=== PATIENT | female | born 1970 | race African-American/Black ===

== ENCOUNTER 2017-09-02 15:07 | Observation (INO) | payer BC ==
--- NOTE | 2017-09-02 15:41 | ER Document Report ---
ED Medical Screen (RME) - General Chief Complaint: Numbness of Face Stated Complaint: NUMBNESS, LEFT ARM PAIN Time Seen by Provider: 09/02/17 15:39 Mode of Arrival: Ambulatory Information source: Patient Notes: 47-year-old female with hypertension, prediabetes presents with complaint of left-sided facial numbness that started 1 hour prior to arrival. Patient denies any associated slurred speech, headache, unilateral weakness. She does state that yesterday she experienced some left elbow pain but no weakness. NIH performed and 1 for some minor facial asymmetry. I have greeted and performed a rapid initial assessment of this patient. A comprehensive ED assessment and evaluation of the patient including analysis of labs and imaging ( if obtained) and completion of medical decision making will be conducted by an additional ED provider. PHYSICAL EXAMINATION: GENERAL: Well-appearing, well-nourished and in no acute distress. HEAD: Atraumatic, normocephalic. EYES: Pupils equal round extraocular movements intact, conjunctiva are normal. ENT: Nares patent NECK: Normal range of motion LUNGS: No respiratory distress Musculoskeletal: Normal range of motion NEUROLOGICAL: Normal speech, normal gait. Minor facial asymmetry. NIH 1 PSYCH: Normal mood, normal affect. SKIN: Warm, Dry, normal turgor, no rashes or lesions noted. TRAVEL OUTSIDE OF THE [place] IN LAST 30 DAYS: No - Related Data Allergies/Adverse Reactions: erythromycin base Allergy (Verified 09/02/17 15:15) ibuprofen Allergy (Verified 09/02/17 15:15) Penicillins Allergy (Verified 09/02/17 15:15) Sulfa (Sulfonamide Antibiotics) Allergy (Verified 09/02/17 15:15) Past Medical History - Past Medical History Cardiac Medical History: Reports: Hx Hypertension Pulmonary Medical History: Reports: Hx Asthma Physical Exam - Vital signs Vitals: Temp Pulse Resp BP Pulse Ox 98.7 F 84 18 149/84 H 97 09/02/17 15:25 09/02/17 15:25 09/02/17 15:25 09/02/17 15:25 09/02/17 15:25 Course - Vital Signs Vital signs: Temp Pulse Resp BP Pulse Ox 98.7 F 84 18 149/84 H 97 09/02/17 15:25 09/02/17 15:25 09/02/17 15:25 09/02/17 15:25 09/02/17 15:25
--- NOTE | 2017-09-02 16:27 | RADIOLOGY REPORT (SQ) ---
EXAM DESCRIPTION: CT HEAD WITHOUT COMPLETED DATE/TIME: 09/02/2017 4:04 pm REASON FOR STUDY: Facial numbness COMPARISON: None. TECHNIQUE: Axial images acquired through the brain without intravenous contrast. Images reviewed wi th bone, brain and subdural windows. Additional sagittal and coronal reconstructions were generated. Images stored on PACS. All CT scanners at this facility use dose modulation, iterative reconstruction, and/or weight based d osing when appropriate to reduce radiation dose to as low as reasonably achievable (ALARA). [facility]: Dose Right [facility]: CareDose [facility]: Dose Right [facility]: Teradose 4D [facility]: Smart ClearSaleing RADIATION DOSE: CT Rad equipment meets quality standard of care and radiation dose reduction techniq ues were employed. CTDIvol: 53.2 mGy. DLP: 1044 mGy-cm. mGy. LIMITATIONS: None. FINDINGS: VENTRICLES: Normal size and contour. CEREBRUM: No masses. No hemorrhage. No midline shift. No evidence for acute infarction. Normal gra y/white matter differentiation. No areas of low density in the white matter. CEREBELLUM: No masses. No hemorrhage. No alteration of density. No evidence for acute infarction. EXTRAAXIAL SPACES: No fluid collections. No masses. ORBITS AND GLOBE: No intra- or extraconal masses. Normal contour of globe without masses. CALVARIUM: No fracture. PARANASAL SINUSES: No fluid or mucosal thickening. SOFT TISSUES: No mass or hematoma. OTHER: No other significant finding. IMPRESSION: NORMAL BRAIN CT WITHOUT CONTRAST. EVIDENCE OF ACUTE STROKE: NO. COMMENT: Quality ID # [id number]: Final reports with documentation of one or more dose reduction techniques (e.g., Automated exposure control, adjustment of the mA and/or kV according to patient size, use of iterative reconstruction technique) TECHNICAL DOCUMENTATION: JOB ID: [id number] [employer]- All Rights Reserved Reading location - IP/workstation name: [email or web address]
--- NOTE | 2017-09-02 16:28 | RADIOLOGY REPORT (SQ) ---
EXAM DESCRIPTION: CHEST 2 VIEWS COMPLETED DATE/TIME: 09/02/2017 4:09 pm REASON FOR STUDY: Facial numbness COMPARISON: 07/13/2014 EXAM PARAMETERS: NUMBER OF VIEWS: two views TECHNIQUE: Digital Frontal and Lateral radiographic views of the chest acquired. RADIATION DOSE: NA LIMITATIONS: none FINDINGS: LUNGS AND PLEURA: No opacities, masses or pneumothorax. No pleural effusion. MEDIASTINUM AND HILAR STRUCTURES: No masses or contour abnormalities. HEART AND VASCULAR STRUCTURES: Heart normal size. No evidence for failure. BONES: No acute findings. HARDWARE: None in the chest. OTHER: No other significant finding. IMPRESSION: NO ACUTE RADIOGRAPHIC FINDING IN THE CHEST. TECHNICAL DOCUMENTATION: JOB ID: [id number] [employer]- All Rights Reserved Reading location - IP/workstation name: [email or web address]
--- NOTE | 2017-09-02 16:33 | ER Document Report ---
ED General - General Mode of Arrival: Ambulatory Information source: Patient TRAVEL OUTSIDE OF THE [place]. IN LAST 30 DAYS: No <JOELLEN CUMMINGS - Last Filed: 09/02/17 17:33> <LINDA PARISH - Last Filed: 09/02/17 18:58> - General Chief Complaint: Numbness of Face Stated Complaint: NUMBNESS, LEFT ARM PAIN Time Seen by Provider: 09/02/17 15:39 Notes: Patient is a 47 year old female with HTN and pre-diabetes presents to the emergency department complaining of left sided facial numbness onset today. Around 1400, the patient was brushing her teeth and noticed the left side of her mouth was numb, further stating she began to drool out of the left side of her mouth and could not puff up her cheeks. Patient states she had a similar episode a few years ago where she had right sided weakness. She states the MRI and CT scan performed then did not provide etiology for her weakness. Patient states she has family in [place] and is visiting from [place]. (JOELLEN CUMMINGS) - Related Data Allergies/Adverse Reactions: erythromycin base Allergy (Verified 09/02/17 15:41) ibuprofen Allergy (Verified 09/02/17 15:41) NSAIDS (Non-Steroidal Anti-Inflamma Allergy (Verified 09/02/17 15:41) Penicillins Allergy (Verified 09/02/17 15:41) Sulfa (Sulfonamide Antibiotics) Allergy (Verified 09/02/17 15:41) Past Medical History - General Information source: Patient - Social History Smoking Status: Never Smoker Chew tobacco use (# tins/day): No Frequency of alcohol use: None Drug Abuse: None Family History: Reviewed & Not Pertinent Patient has suicidal ideation: No Patient has homicidal ideation: No - Past Medical History Cardiac Medical History: Reports: Hx Hypertension Pulmonary Medical History: Reports: Hx Asthma <JOELLEN CUMMINGS - Last Filed: 09/02/17 17:33> Review of Systems - Review of Systems Constitutional: No symptoms reported EENT: No symptoms reported Cardiovascular: No symptoms reported Respiratory: No symptoms reported Gastrointestinal: No symptoms reported Genitourinary: No symptoms reported Female Genitourinary: No symptoms reported Musculoskeletal: No symptoms reported Skin: No symptoms reported Hematologic/Lymphatic: No symptoms reported Neurological/Psychological: See HPI, Weakness, Numbness -: Yes All other systems reviewed and negative <JOELLEN CUMMINGS - Last Filed: 09/02/17 17:33> Physical Exam - General General appearance: Appears well, Alert In distress: None - HEENT Head: Normocephalic, Atraumatic Eyes: Normal Conjunctiva: Normal Extraocular movements intact: Yes Pupils: PERRL Mouth/Lips: Other - Left lateral upper and lower lip, medially adjacent to mouth is flaccid. Left perioral region is weak. - Respiratory Respiratory status: No respiratory distress Chest status: Nontender Breath sounds: Normal Chest palpation: Normal - Cardiovascular Rhythm: Regular Heart sounds: Normal auscultation Murmur: No Friction rub: No Gallop: None auscultated - Abdominal Inspection: Normal - Back Back: Normal - Extremities General upper extremity: Normal ROM General lower extremity: Normal ROM - Neurological Neuro grossly intact: Yes Cognition: Normal Orientation: AAOx4 [place] Coma Scale Eye Opening: Spontaneous [place]ine Coma Scale Verbal: Oriented Regine Coma Scale Motor: Obeys Commands [place] Coma Scale Total: 15 Speech: Normal Cranial nerves: Tongue deviation - Right sided, Other - Left sided perioral region weakness as described in HEENT. No signs of weakness past the left cheek or any other areas of the face. Motor strength normal: LUE, RUE, LLE, RLE Additional motor exam normals: Equal delivery merchandiser, Other - Able to do straight leg raise bilaterally indefinitely. Sensory: Normal - Psychological Associated symptoms: Normal affect, Normal mood - Skin Skin Temperature: Warm Skin Moisture: Dry Skin Color: Normal <JOELLEN CUMMINGS - Last Filed: 09/02/17 17:33> - Vital signs Vitals: Temp Pulse Resp BP Pulse Ox 98.7 F 84 18 149/84 H 97 09/02/17 15:25 09/02/17 15:25 09/02/17 15:25 09/02/17 15:25 09/02/17 15:25 Course - Laboratory Result Diagrams: 09/02/17 16:28 09/02/17 16:28 <JOELLEN CUMMINGS - Last Filed: 09/02/17 17:33> - Laboratory Result Diagrams: 09/02/17 16:28 09/02/17 16:28 - Diagnostic Test Radiology reviewed: Image reviewed, Reports reviewed - CT scan of the brain is unremarkable. Chest x-ray is unremarkable. MRI of the brain shows scattered white matter microvascular ischemic changes. - EKG Interpretation by Me EKG shows normal: Sinus rhythm, [place], Intervals, QRS Complexes, ST-T Waves Rate: Normal - 79 Rhythm: NSR <LINDA PARISH - Last Filed: 09/02/17 18:58> - Vital Signs Vital signs: Temp Pulse Resp BP Pulse Ox 98.7 F 81 12 146/81 H 99 09/02/17 15:25 09/02/17 16:34 09/02/17 16:34 09/02/17 16:34 09/02/17 16:34 - Laboratory Laboratory results interpreted by me: 09/02/17 09/02/17 09/02/17 16:28 16:28 16:28 RDW 14.4 H APTT 20.8 L Carbon Dioxide 31 H Glucose 112 H AST 65 H ALT 57 H Creatine Kinase 169 H Total Protein 8.7 H Discharge <JOELLEN CUMMINGS - Last Filed: 09/02/17 17:33> - Discharge Admitting Provider: Hospitalist Unit Admitted: IMCU <LINDA PARISH - Last Filed: 09/02/17 18:58> - Discharge Clinical Impression: Facial weakness, Left facial numbness Condition: Stable Disposition: ADMITTED INPATIENT Scribe Attestation: 09/02/17 17:27 I personally performed the services described in the documentation, reviewed and edited the documentation which was dictated to the scribe in my presence, and it accurately records my words and actions. (LINDA PARISH) Scribe Documentation - Scribe Written by Jovanna:: Jovanna Chacon, 09/02/2017 16:48 acting as scribe for :: Ashvin <JOELLEN CUMMINGS - Last Filed: 09/02/17 17:33>
[2017-09-02 16:54] LABS: ABSOLUTE BASOPHILS # (AUTO) 0.1 10^3/uL (0.0-0.2); ABSOLUTE EOSINOPHILS # (AUTO) 0.1 10^3/uL (0.0-0.6); ABSOLUTE LYMPHOCYTES (AUTO) 2.7 10^3/uL (0.5-4.7); ABSOLUTE MONOCYTES (AUTO) 0.7 10^3/uL (0.1-1.4); ABSOLUTE NEUT (AUTO) 3.9 10^3/uL (1.7-8.2); EOSINOPHILS % (AUTO) 1.8 % (0-6); HEMATOCRIT 40.7 % (36.0-47.0); HEMOGLOBIN 13.8 g/dL (12.0-15.5); LYMPHOCYTES % (AUTO) 35.4 % (13-45); MEAN CORPUSCULAR HEMOGLOBIN 29.8 pg (27.0-33.4); MEAN CORPUSCULAR HGB CONC 33.8 g/dL (32.0-36.0); MEAN CORPUSCULAR VOLUME 88 fl (80-97); MONOCYTES % (AUTO) 9.6 % (3-13); PLATELET COUNT 248 10^3/uL (150-450); RED BLOOD COUNT 4.62 10^6/uL (3.72-5.28); RED CELL DISTRIBUTION WIDTH 14.4 % (11.5-14.0); SEGMENTED NEUTROPHILS % (AUTO) 52.2 % (42-78); TOTAL CELLS COUNTED % (AUTO) 100 %; WHITE BLOOD COUNT 7.5 10^3/uL (4.0-10.5)
[2017-09-02 16:58] LABS: INTERNATIONAL RATION (INR) 0.93; PROTHROMBIN TIME 12.9 SEC (11.4-15.4)
[2017-09-02 16:59] LABS: PARTIAL THROMBOPLASTIN TIME 20.8 SEC (23.5-35.8)
[2017-09-02 17:04] LABS: ALANINE AMINOTRANSFERASE 57 U/L (9-52); ALBUMIN 4.5 g/dL (3.5-5.0); ALKALINE PHOSPHATASE 110 U/L (38-126); ANION GAP 11 (5-19); APPEARANCE,URINE SLIGHTLY-CLOUDY; ASPARTATE AMINO TRANSFERASE 65 U/L (14-36); BILIRUBIN,DIRECT 0.3 mg/dL (0.0-0.4); BILIRUBIN,TOTAL 0.5 mg/dL (0.2-1.3); BILIRUBIN,URINE NEGATIVE (NEGATIVE); BLOOD UREA NITROGEN 10 mg/dL (7-20); CARBON DIOXIDE 31 mmol/L (22-30); CHLORIDE 102 mmol/L (98-107); COLOR,URINE YELLOW; CREATINE KINASE 169 U/L (30-135); GLUCOSE 112 mg/dL (75-110); GLUCOSE, URINE NEGATIVE (NEGATIVE); KETONES,URINE NEGATIVE (NEGATIVE); LEUKOCYTE ESTERASE,URINE NEGATIVE (NEGATIVE); NITRITE,URINE NEGATIVE (NEGATIVE); PROTEIN,URINE NEGATIVE (NEGATIVE); SODIUM 144.3 mmol/L (137-145); TOTAL PROTEIN 8.7 g/dL (6.3-8.2); URINE SPECIFIC GRAVITY 1.011; UROBILINOGEN,URINE NEGATIVE mg/dL (<2.0)
[2017-09-02 17:15] LABS: CREATINE KINASE MB 0.62 ng/mL (<4.55)
[2017-09-02 17:20] LABS: TROPONIN I < 0.012 ng/mL
[2017-09-02] MEDS ORDERED: DIAZEPAM INJ 10 MG/2 ML DISP.SYRIN IM ONE (17:29)
--- NOTE | 2017-09-02 18:45 | RADIOLOGY REPORT (SQ) ---
EXAM DESCRIPTION: MRI HEAD WITHOUT COMPLETED DATE/TIME: 09/02/2017 6:30 pm REASON FOR STUDY: Left perioral numbness with muscle weakness COMPARISON: None. TECHNIQUE: Multiplanar imaging includes non-contrasted T1, T2, FLAIR, and Diffusion with ADC map seq uences. Images stored on PACS. LIMITATIONS: None. FINDINGS: ANATOMY: No anomalies. Normal vascular flow voids. Pituitary fossa normal. CSF SPACES: Normal in size and contour. No hemorrhage. CEREBRUM: A few high-signal intensity lesions scattered throughout the white matter on FLAIR imaging with distribution suggesting chronic micro-vascular ischemic change. Sulci and gyri normal in size a nd contour. No evidence of hemorrhage, mass or extraaxial fluid collection. POSTERIOR FOSSA: No signal alteration. No hemorrhage. No edema, masses or mass effect. Internal samuel tory canals, cerebello-pontine angles, mastoids normal. DIFFUSION: Negative for acute or sub-acute infarction. ORBITS: No masses. Globes normal. PARANASAL SINUSES: No fluid levels. Mucosa normal. OTHER: No other significant finding. IMPRESSION: Negative for acute or sub-acute infarction.A few high-signal intensity lesions scattered throughout the white matter on FLAIR imaging with distribution suggesting chronic micro-vascular isc hemic change. EVIDENCE OF ACUTE STROKE: NO. TECHNICAL DOCUMENTATION: JOB ID: [id number] 2010 [employer]- All Rights Reserved Reading location - IP/workstation name: [email or web address]
[2017-09-02] MEDS ORDERED: ATORVASTATIN CALCIUM 80 MG TABLET PO ONE (18:57)
[2017-09-02] MEDS ORDERED: DOCUSATE SODIUM 100 MG CAPSULE PO PRN (20:24)
[2017-09-02] MEDS ORDERED: MAGNESIUM HYDROXIDE SUSP 30 ML UDCUP PO PRN (20:24)
[2017-09-02] MEDS ORDERED: ACETAMINOPHEN 325 MG TABLET PO PRN (20:24)
[2017-09-02] MEDS: HEPARIN SOD (PORCINE) 5,000 UNIT/ML 1 ML SYRINGE SUBCUT SCH (22:21)
--- NOTE | 2017-09-03 00:55 | EKG REPORT ---
SEVERITY:- NORMAL ECG - SINUS RHYTHM : Confirmed by: Yanci Stout MD 03-Sep-2017 00:54:30
--- NOTE | 2017-09-03 04:19 | PDOC H&P ---
History of Present Illness Admission Date/PCP: 09/02/17 19:21 Patient complains of: Numbness and weakness of the left face History of Present Illness: RENE VERDUGO is a 47 year old female with a past medical history of hypertension , diet-controlled diabetes and unclear tachycardia. She presents with 3 hours of left face numbness and weakness noted when brushing her teeth resulting in several hours of drooling out the left side of the mouth and unable to puff her cheeks. She denies history of weakness but several years ago had an episode of entire right sided body weakness with an MRI allegedly resulting in possible multiple sclerosis. She denies palpitations, jaw claudication, headache, loss of balance, change in mood, tunnel vision or falls. She denies recent change in medications. In the emergency room she is at baseline and has an unremarkable workup she is referred to the hospitalist for observation. Past Medical History Cardiac Medical History: Reports: Hypertension Pulmonary Medical History: Reports: Asthma Endocrine Medical History: Reports: Obesity Past Surgical History Past Surgical History: Reports: Appendectomy Social History Lives with: Spouse/Significant other Smoking Status: Former Smoker Frequency of Alcohol Use: None Hx Recreational Drug Use: No Drugs: None - Advance Directive Resuscitation Status: Full Code Family History Family History: CVA, DM Parental Family History Reviewed: Yes Children Family History Reviewed: Yes Sibling(s) Family History Reviewed.: Yes Medication/Allergy Home Medications: Budesonide/Formoterol Fumarate [Symbicort 160-4.5 Mcg Inhaler] 10.2 gm IH BID Hydrochlorothiazide 25 mg PO QAM 09/02/17 Metoprolol Succinate [Toprol XL 100 mg Tablet] 100 mg PO BID 09/02/17 Nifedipine [Procardia] 60 mg PO QAM 09/02/17 Potassium Chloride 10 meq PO BID 09/02/17 Allergies/Adverse Reactions: erythromycin base Allergy (Verified 09/02/17 15:41) ibuprofen Allergy (Verified 09/02/17 15:41) NSAIDS (Non-Steroidal Anti-Inflamma Allergy (Verified 09/02/17 15:41) Penicillins Allergy (Verified 09/02/17 15:41) Sulfa (Sulfonamide Antibiotics) Allergy (Verified 09/02/17 15:41) Review of Systems Constitutional: ABSENT: chills, fever(s), headache(s), weight gain, weight loss Eyes: ABSENT: visual disturbances Ears: ABSENT: hearing changes Cardiovascular: ABSENT: chest pain, dyspnea on exertion, edema, orthropnea, palpitations Respiratory: ABSENT: cough, hemoptysis Gastrointestinal: ABSENT: abdominal pain, constipation, diarrhea, hematemesis, hematochezia, nausea, vomiting Genitourinary: ABSENT: dysuria, hematuria Musculoskeletal: ABSENT: joint swelling Integumentary: ABSENT: rash, wounds Neurological: ABSENT: abnormal gait, abnormal speech, confusion, dizziness, focal weakness, syncope Psychiatric: ABSENT: anxiety, depression, homidical ideation, suicidal ideation Endocrine: ABSENT: cold intolerance, heat intolerance, polydipsia, polyuria Hematologic/Lymphatic: ABSENT: easy bleeding, easy bruising Physical Exam Vital Signs: Temp Pulse Resp BP Pulse Ox 98.7 F 73 16 134/77 H 99 09/02/17 23:41 09/03/17 02:58 09/03/17 00:00 09/03/17 00:00 09/03/17 00:00 General appearance: PRESENT: no acute distress, well-developed, well-nourished Head exam: PRESENT: atraumatic, normocephalic Eye exam: PRESENT: conjunctiva pink, EOMI, PERRLA. ABSENT: scleral icterus Ear exam: PRESENT: normal external ear exam Mouth exam: PRESENT: moist, tongue midline Neck exam: ABSENT: carotid bruit, JVD, lymphadenopathy, thyromegaly Respiratory exam: PRESENT: clear to auscultation dnony. ABSENT: rales, rhonchi, wheezes Cardiovascular exam: PRESENT: RRR. ABSENT: diastolic murmur, rubs, systolic murmur Pulses: PRESENT: normal dorsalis pedis pul Vascular exam: PRESENT: normal capillary refill GI/Abdominal exam: PRESENT: normal bowel sounds, soft. ABSENT: distended, guarding, mass, organolmegaly, rebound, tenderness Rectal exam: PRESENT: deferred Extremities exam: PRESENT: full ROM. ABSENT: calf tenderness, clubbing, pedal edema Neurological exam: PRESENT: alert, awake, oriented to person, oriented to place , oriented to time, oriented to situation, CN II-XII grossly intact. ABSENT: motor sensory deficit Psychiatric exam: PRESENT: appropriate affect, normal mood. ABSENT: homicidal ideation, suicidal ideation Skin exam: PRESENT: dry, intact, warm. ABSENT: cyanosis, rash Results Impressions: Head CT 09/02/17 15:41 IMPRESSION: NORMAL BRAIN CT WITHOUT CONTRAST. EVIDENCE OF ACUTE STROKE: NO. Chest X-Ray 09/02/17 15:43 IMPRESSION: NO ACUTE RADIOGRAPHIC FINDING IN THE CHEST. Head MRI 09/02/17 16:41 IMPRESSION: Negative for acute or sub-acute infarction.A few high-signal intensity lesions scattered throughout the white matter on FLAIR imaging with distribution suggesting chronic micro-vascular ischemic change. EVIDENCE OF ACUTE STROKE: NO. Assessment & Plan - Diagnosis (1) TIA (transient ischemic attack) Is this a current diagnosis for this admission?: Yes Plan: CVA care set deployed, follow-up carotid Doppler, lipid profile, A1c and TSH. Aspirin held secondary to severe allergy, empiric statin initiated differential includes MS or vasculitis, CRP and ESR pending (2) Hypertension Is this a current diagnosis for this admission?: Yes Plan: Continue outpatient regiment, hold for systolic pressure less than 140 (3) History of tachycardia Is this a current diagnosis for this admission?: Yes Plan: Continue telemetry monitoring given possibility of SVT in unclear history (4) Diabetes Is this a current diagnosis for this admission?: Yes Plan: Zachalog sliding scale, evaluate A1c - Time Time Spent: 30 to 50 Minutes - Inpatient Certification Medical Necessity: Need Close Monitoring Due to Risk of Patient Decompensation
[2017-09-03] MEDS: HEPARIN SOD (PORCINE) 5,000 UNIT/ML 1 ML SYRINGE SUBCUT SCH ×2 (05:39→14:47)
[2017-09-03] MEDS ORDERED: HYDROCHLOROTHIAZIDE 25 MG TABLET PO SCH (08:00)
[2017-09-03] MEDS ORDERED: NIFEDIPINE 10 MG CAPSULE PO SCH (08:00)
--- NOTE | 2017-09-03 08:15 | PDOC DISCHARGE SUMMARY ---
General - Admit/Disc Date/PCP Admission Date/Primary Care Provider: 09/02/17 19:21 Discharge Date: 09/03/17 - Additional Information Resuscitation Status: Full Code Home Medications: Budesonide/Formoterol Fumarate [Symbicort 160-4.5 Mcg Inhaler] 10.2 gm IH BID Hydrochlorothiazide 25 mg PO QAM 09/02/17 Metoprolol Succinate [Toprol XL 100 mg Tablet] 100 mg PO BID 09/02/17 Nifedipine [Procardia] 60 mg PO QAM 09/02/17 Potassium Chloride 10 meq PO BID 09/02/17 History of Present Illness History of Present Illness: RENE VERDUGO is a 47 year old female with a past medical history of hypertension , diet-controlled diabetes and unclear tachycardia. She presents with 3 hours of left face numbness and weakness noted when brushing her teeth resulting in several hours of drooling out the left side of the mouth and unable to puff her cheeks. She denies history of weakness but several years ago had an episode of entire right sided body weakness with an MRI allegedly resulting in possible multiple sclerosis. She denies palpitations, jaw claudication, headache, loss of balance, change in mood, tunnel vision or falls. She denies recent change in medications. In the emergency room she is at baseline and has an unremarkable workup she is referred to the hospitalist for observation. Hospital Course Hospital Course: This is a 47 so black female patient who presented to us with chief complaint of numbness and weakness of the left face. Patient has underlying borderline diabetes mellitus and hypertension. Her CT scan and MRI of the brain are negative for acute intracranial process. This morning I seen and examined the patient at bedside. When I seen the patient she is sitting up by the bedside and enjoying her breakfast. She is awake alert and oriented. The numbness and weakness of the left face has subsided. And patient does not have any neurologic deficits. She is scheduled to have bilateral carotid Doppler. Since patient has allergy to aspirin I will send her with Plavix and Lipitor 40 mg p.o. nightly. She needs follow-up with her primary care physician. Physical Exam Vital Signs: Temp Pulse Resp BP Pulse Ox 97.9 F 66 16 120/70 99 09/03/17 03:17 09/03/17 07:00 09/03/17 04:00 09/03/17 04:00 09/03/17 04:00 Intake & Output 09/02/17 09/03/17 09/04/17 06:59 06:59 06:59 Output Total 1 Balance -1 Weight 100.3 kg General appearance: PRESENT: no acute distress Head exam: PRESENT: atraumatic, normocephalic Eye exam: PRESENT: conjunctiva pink Mouth exam: PRESENT: moist Neck exam: ABSENT: carotid bruit, JVD, lymphadenopathy, thyromegaly Respiratory exam: PRESENT: clear to auscultation donny. ABSENT: rales, rhonchi, wheezes Cardiovascular exam: PRESENT: RRR. ABSENT: diastolic murmur, rubs, systolic murmur GI/Abdominal exam: PRESENT: normal bowel sounds, soft. ABSENT: distended, guarding, mass, organolmegaly, rebound, tenderness Extremities exam: PRESENT: full ROM. ABSENT: calf tenderness, clubbing, pedal edema Neurological exam: PRESENT: alert, awake, oriented to person, oriented to place , oriented to time, oriented to situation, CN II-XII grossly intact. ABSENT: motor sensory deficit Psychiatric exam: PRESENT: appropriate affect, normal mood. ABSENT: homicidal ideation, suicidal ideation Results Impressions: Head CT 09/02/17 15:41 IMPRESSION: NORMAL BRAIN CT WITHOUT CONTRAST. EVIDENCE OF ACUTE STROKE: NO. Chest X-Ray 09/02/17 15:43 IMPRESSION: NO ACUTE RADIOGRAPHIC FINDING IN THE CHEST. Head MRI 09/02/17 16:41 IMPRESSION: Negative for acute or sub-acute infarction.A few high-signal intensity lesions scattered throughout the white matter on FLAIR imaging with distribution suggesting chronic micro-vascular ischemic change. EVIDENCE OF ACUTE STROKE: NO. Qualifiers - * PATIENT BEING DISCHARGED WITH ANY OF THE FOLLOWING DIAGNOSIS: No
[2017-09-03] MEDS: METOPROLOL SUCCINATE 50 MG TAB.SR.24H PO SCH ×2 (09:42→17:14)
[2017-09-03] MEDS: POTASSIUM CHLORIDE 10 MEQ CAPSULE.ER PO SCH ×2 (09:42→17:14)
[2017-09-03] MEDS: BUDESONIDE/FORMOTEROL 160-4.5 MCG 60 PUFF/6 GM MDI IH SCH ×2 (09:43→17:17)
[2017-09-03 16:22] VITALS: BP 126/79
--- NOTE | 2017-09-03 16:33 | RADIOLOGY REPORT (SQ) ---
EXAM DESCRIPTION: CAROTID DOPPLER COMPLETED DATE/TIME: 09/03/2017 4:15 pm REASON FOR STUDY: tia COMPARISON: CT BRAIN 09/02/2017 MRI BRAIN 09/02/2017 TECHNIQUE: Grayscale ultrasound, Doppler velocity and spectra, and color Doppler images acquired of the extra-cranial carotid and vertebral arteries. Images stored on PACS. LIMITATIONS: None. FINDINGS: RIGHT CAROTID CCA Velocities: Within normal limits. ICA Velocities Peak systolic 0.69 m/s. End diastolic 0.26 m/s. Proximal ICA/CCA peak systolic ratio 0.8. Spectra normal. No significant plaque. LEFT CAROTID CCA Velocities: Within normal limits. ICA Velocities Peak systolic 0.57 m/s. End diastolic 0.18 m/s. Proximal ICA/CCA peak systolic ratio 1.0. Spectra normal. No significant plaque. VERTEBRAL ARTERIES: Antegrade flow. Normal waveforms. SUBCLAVIAN ARTERIES: NOT EVALUATED OTHER: No other significant finding. IMPRESSION: NO HEMODYNAMICALLY SIGNIFICANT STENOSIS. COMMENT: Quality ID #195: Velocity criteria are extrapolated from the diameter data as defined by t he Society of Radiologists in Ultrasound Consensus Conference. Radiology 2003: 229; 340-346. TECHNICAL DOCUMENTATION: JOB ID: [id number] [employer]- All Rights Reserved Reading location - IP/workstation name: [email or web address]
== END 2017-09-03 18:42 | disposition home or self-care (01) ==
LOC: ER 15:07 → INTOOBSV 19:21 → EH 19:21 → 3N 21:04
PROVIDERS: ADMIT Internal Medicine; ATTEND Internal Medicine
DX: R29.810 Facial weakness (principal); R53.1 Weakness; I10 Essential (primary) hypertension; R20.0 Anesthesia of skin; E11.9 Type 2 diabetes mellitus without complications; J45.909 Unspecified asthma, uncomplicated; M25.522 Pain in left elbow; Z79.899 Other long term (current) drug therapy; Z90.49 Acquired absence of other specified parts of digestive tract; Z87.891 Personal history of nicotine dependence; Z82.3 Family history of stroke; Z83.3 Family history of diabetes mellitus; Z88.6 Allergy status to analgesic agent; Z86.79 Personal history of other diseases of the circulatory system
CPT/HCPCS: 93005; 99285; 96372; 36415 ×2; 82553; 82550; 84443; 85025; 85652; 85610; 85730; 81025; 86140; 80053; 81001; 84484; 83036; 93880; 70551; 71046; 70450; 93010; G0378 ×3; J1644 ×2; J3360; J3490 ×4